=== PATIENT | male | born 1980 | race Caucasian/White ===

== ENCOUNTER 2020-09-02 10:13 | Emergency (ER) | payer OTHER ==
[~2020-09-02] VITALS: Wt 103.4 kg
[~2020-09-02 10:13] MED LIST: MOTRIN800 MG PO; PEN-VK500 MG PO; ULTRAM50 MG PO
[2020-09-02] MEDS ORDERED: ULTRAM50 MG PO (12:07)
[2020-09-02] MEDS ORDERED: NORCO 5-325 TA1 EACH PO (14:42)
== END 2020-09-02 12:10 | disposition home or self-care (01) ==
LOC: ED 10:13
DX: S62.307A Unspecified fracture of fifth metacarpal bone, left hand, initial encounter for closed fracture (principal); X58.XXXA Exposure to other specified factors, initial encounter; Y93.89 Activity, other specified; Y92.89 Other specified places as the place of occurrence of the external cause; Y99.8 Other external cause status

== ENCOUNTER → 2020-09-13 | Outpatient (CLI) | payer OTHER ==
[~2020-09-13] MED LIST changes: +NORCO 5-325 TA1 EACH PO
== END | disposition home or self-care (01) ==
LOC: ORTHO 01:20
PROVIDERS: ATTEND Orthopaedic Surgery
DX: S62.367D Nondisplaced fracture of neck of fifth metacarpal bone, left hand, subsequent encounter for fracture with routine healing (principal); X58.XXXD Exposure to other specified factors, subsequent encounter

== ENCOUNTER 2021-06-27 14:31 | Emergency (ER) | payer OTHER ==
[~2021-06-27] VITALS: Ht 187.9 cm; Wt 103.9 kg
== END 2021-06-27 17:08 | disposition home or self-care (01) ==
LOC: ED 14:31
DX: F15.10 Other stimulant abuse, uncomplicated (principal); F17.200 Nicotine dependence, unspecified, uncomplicated; Z79.899 Other long term (current) drug therapy

== ENCOUNTER → 2021-07-18 | Outpatient (CLI) | payer OTHER | END | disposition home or self-care (01) | LOC: COVID19 00:08 | PROVIDERS: ATTEND Internal Medicine | DX: Z11.52 Encounter for screening for COVID-19 (principal); Z20.822 Contact with and (suspected) exposure to COVID-19 ==